=== PATIENT | female | born 1995 | race Hispanic/Latino ===

== ENCOUNTER 2022-09-14 03:55 | Emergency (ER) | payer SELFPAY ==
[2022-09-14 04:06] VITALS: BP 130/77
[2022-09-14] MEDS ORDERED: TRIAMCINOLON0.11 TOP (04:10)
== END 2022-09-14 05:00 | disposition home or self-care (01) | DRG 607 ==
LOC: ED 03:55
DX: L25.9 Unspecified contact dermatitis, unspecified cause (principal)

== ENCOUNTER 2022-09-16 20:22 | Emergency (ER) | payer SELFPAY ==
[~2022-09-16 20:22] MED LIST: TRIAMCINOLON0.11 TOP
[2022-09-16 20:54] VITALS: BP 116/68
[2022-09-16] MEDS ORDERED: PREDNISONE20 MG PO ×2 (22:23→22:27)
[2022-09-16] MEDS ORDERED: BENADRYL 25MG C25 MG PO ×2 (22:23→22:27)
[2022-09-16] MEDS ORDERED: FLUOCINONIDE0.051 EX ×2 (22:23→22:27)
== END 2022-09-16 22:47 | disposition home or self-care (01) | DRG 607 ==
LOC: ED 20:22
DX: L23.89 Allergic contact dermatitis due to other agents (principal); F17.200 Nicotine dependence, unspecified, uncomplicated